=== PATIENT | male | born 1960 | race American Indian/Alaskan Native ===

== ENCOUNTER 2020-05-04 03:27 | Emergency (ER) | payer MEDICARE ==
--- NOTE | 2020-05-04 06:31 | XRay Report ---
LEFT RIBS 4 VIEWS INDICATION / CLINICAL INFORMATION: injury. COMPARISON: None available. FINDINGS: RIBS: No acute, displaced fracture or other acute abnormality. There are old healed left posterior fo urth through sixth rib fractures. LUNGS: No acute findings. No pneumothorax. Signer Name: Chaparro Keane MD Signed: 05/04/2020 6:30 AM Workstation Name: [email or web address]
[2020-05-04] MEDS ORDERED: HYDROcodone/ACETAMINOPHEN 5-325 MG TAB PO ONE (10:18)
--- NOTE | 2020-05-04 10:21 | Emergency Department Report ---
HPI - General Chief Complaint: Fall Time Seen by Provider: 05/04/20 10:03 - HPI HPI: This is a 60-year-old -[place] male who presents to the emergency department via EMS with a complaint of left-sided rib pain after falling onto his own wheelchair this morning. Patient is mostly wheelchair dependent secondary to a stroke with left-sided residual deficits/weakness. The patient also has a history of end-stage renal disease on hemodialysis on //Saturday, and he has a history of a left hip replacement. The patient says that he was getting up out of bed and "I think I got up too fast", he lost his balance, and fell onto his left side onto the wheelchair. He denies hitting his head or any loss of consciousness. Patient says that he took 2 extra strength Tylenol for his symptoms without any relief. Currently he rates his pain at 7 out of 10 in intensity. The pain worsens with breathing and palpation. No known alleviating factors. His primary care physician is a Dr. Cha at [facility]. ED Past Medical Hx - Past Medical History Previous Medical History?: Yes Additional medical history: HD (,) - Surgical History Additional Surgical History: left hip, - Social History Smoking Status: Current Every Day Smoker Substance Use Type: Alcohol, Marijuana - Medications Home Medications: Home Medications Medication Instructions Recorded Confirmed Last Taken Type Acetaminophen/Codeine [Tylenol 1 tab PO Q6H PRN #10 tab 05/04/20 Unknown Rx /Codeine # 3 tab] ED Review of Systems ROS: Stated complaint: FALL/LEFT SIDE PAIN Other details as noted in HPI Comment: All other systems reviewed and negative Constitutional: denies: chills, fever Eyes: denies: eye pain, vision change ENT: denies: ear pain, throat pain Respiratory: denies: cough, shortness of breath Cardiovascular: chest pain (Left-sided chest wall/rib pain). denies: palpitations Gastrointestinal: denies: abdominal pain, vomiting Genitourinary: denies: dysuria, discharge Musculoskeletal: denies: back pain, arthralgia Skin: denies: rash, lesions Neurological: denies: headache, numbness Physical Exam - Physical Exam Vital Signs: Vital Signs 05/04/20 05/04/20 05:30 09:16 Temperature 98.3 F Pulse Rate 74 60 Respiratory 17 13 Rate Blood Pressure 92/62 117/68 O2 Sat by Pulse 96 Oximetry Physical Exam: GENERAL: The patient is well-developed well-nourished. HENT: Normocephalic. Atraumatic. Patient has moist mucous membranes. EYES: Extraocular motions are intact. NECK: Supple. Trachea is midline. Full range of motion. CHEST/LUNGS: Clear to auscultation. There is no respiratory distress noted. There is tenderness to palpation along the left lateral chest wall/rib cage. No crepitus, ecchymosis or deformity. HEART/CARDIOVASCULAR: Regular. There is no tachycardia. There is no murmur. ABDOMEN: Abdomen is soft, nontender. Patient has normal bowel sounds. There is no abdominal distention. SKIN: Skin is warm and dry. NEURO: The patient is awake, alert, and oriented. The patient is cooperative. Normal speech. MUSCULOSKELETAL: There is no tenderness or deformity. Contracted left upper extremity. BACK: No midline thoracic or lumbar tenderness to palpation. ED Course Vital Signs 05/04/20 05/04/20 05:30 09:16 Temperature 98.3 F Pulse Rate 74 60 Respiratory 17 13 Rate Blood Pressure 92/62 117/68 O2 Sat by Pulse 96 Oximetry ED Medical Decision Making - Radiology Data Radiology results: image reviewed interpreted by me: X-ray of the chest with left-sided rib series does not show any fracture, pneumothorax, pneumonia, pleural effusions, or any other acute process. - Medical Decision Making This patient presents with left-sided rib pain after falling onto his left side onto his wheelchair. Chest x-ray with rib series does not show any fracture, pneumothorax, or any other acute process. There is some tenderness to palpation but otherwise there is no crepitus, ecchymosis, swelling or deformity. I had a long discussion with the patient regarding incentive spirometry and avoiding shallow breathing. Vital signs have been reassuring throughout his ED course. He will be discharged home to follow-up with primary care and will return to the ER with any worsening of his symptoms or with any acute distress. Critical Care Time: No Critical care attestation.: If time is entered above; I have spent that time in minutes in the direct care of this critically ill patient, excluding procedure time. ED Disposition Clinical Impression: Bruised ribs Qualifiers: Encounter type: initial encounter Laterality: left Qualified Code(s): S20.212A - Contusion of left front wall of thorax, initial encounter Fall Qualifiers: Encounter type: initial encounter Qualified Code(s): W19.XXXA - Unspecified fall, initial encounter Disposition: DC-01 TO HOME OR SELFCARE Is pt being admited?: No Condition: Stable Instructions: Rib Contusion Additional Instructions: Please follow-up with your primary care physician in the next few days. Despite your rib pain, please make sure that you continue to take deep breaths to fully inflate your lungs and avoid developing pneumonia. Please try and take at least 10 full, deep breaths per hour while awake. You have been prescribed a medication that is sedating and therefore should not be taken prior to driving, working, and responsible for children and in no way should be mixed with alcohol of any quantity. Return to the emergency department with any worsening of your symptoms, new or concerning symptoms not addressed during this current emergency department visit, or with any acute distress. Prescriptions: Acetaminophen/Codeine [Tylenol /Codeine # 3 tab] 1 tab PO Q6H PRN #10 tab PRN Reason: Pain , Severe (7-10) Referrals: PRIMARY CARE, [Primary Care Provider] - 2-3 Days Time of Disposition: 11:27
[2020-05-04 11:20] VITALS: BP 130/58
== END 2020-05-04 15:18 | disposition home or self-care (01) ==
LOC: ED 03:27
DX: S20.212A Contusion of left front wall of thorax, initial encounter (principal); F17.200 Nicotine dependence, unspecified, uncomplicated; F12.10 Cannabis abuse, uncomplicated; Z79.899 Other long term (current) drug therapy; W05.0XXA Fall from non-moving wheelchair, initial encounter; Y93.89 Activity, other specified; Y92.89 Other specified places as the place of occurrence of the external cause; Y99.8 Other external cause status
CPT/HCPCS: 99283